=== PATIENT | male | born 1935 | race Caucasian/White ===

== ENCOUNTER 2016-07-30 15:51 | Inpatient (IN) | payer MEDICARE, OTHER ==
--- NOTE | ~2016-07-30 | HP ---
History And Physical [place] [address] [facility] [place]. [address] NAME: GAURAV GLEASON : 31 STATUS : ADM IN PAT#: [id number] AGE: 81 ADM/REG DATE : 07/30/16 MR#: [id number] REPORT SERV DATE: 07/30/16 DICTATED BY: NABIL REED DATE: 07/30/16 REPORT STATUS : Draft TRANSCRIBED BY: MODL DATE: 07/30/16 DATE OF ADMISSION: 07/30/2016 CHIEF COMPLAINT: Bilateral lower extremity edema and failure to thrive. HISTORY OF PRESENT ILLNESS: This is an 81-year-old gentleman with a history of nonischemic cardiomyopathy as well as Alzheimer's dementia, presenting with a bilateral lower extremity edema and failure to thrive. The patient himself is not able to provide any valuable information. The patient's was at bedside who gave most of the history. Also I reviewed the existing medical records. The patient has had gradual decline over the past six months. The patient was actually diagnosed with Alzheimer's about two weeks ago, but it seems that the patient has quite advanced dementia as the patient is not able to recognize his or his kids half the time. The patient is not able to change clothes or take bath by himself since about a month ago. Although the patient has been declining over the past six to eight months, the patient has really rapidly declined over the past several days. The patient developed bilateral lower extremity edema as well as shortness of breath especially dyspnea on exertion. The patient is now only able to take a few steps before he gets out of breath. The patient also seen to have decreasing energy level and generalized weakness that he is not able to get out of bed or chair without any assistance. The patient was brought to the ER for further evaluation and care. In the ER, the patient was found to be afebrile and hemodynamically stable. The patient was not hypoxic, and the patient's initial lab work was quite benign. However, the patient was found to have increasing pulmonary congestion and cardiomegaly on chest x-ray. Internal Medicine consultation was requested for admission of the patient for further evaluation and care. REVIEW OF SYSTEMS: The patient is not able to answer review of systems questions by himself. MEDICATIONS: 1. Zyloprim 300 mg p.o. q.a.m. 2. Coreg 12.5 mg p.o. b.i.d. 3. Lasix 20 mg p.o. q.a.m. 4. Neurontin 300 mg p.o. q.a.m. and 600 mg p.o. q.p.m. 5. Lisinopril 10 mg p.o. q.a.m. 6. Zyprexa 2.5 mg p.o. q.h.s. 7. Flomax 0.4 mg p.o. q.a.m. 8. Coumadin 2.5 mg on the week and 5 mg on Friday and Friday. ALLERGIES: NKDA. PAST MEDICAL HISTORY: 1. History of DVT and PE back in 1992. History And Physical [address] [address] NAME: GAURAV GLEASON : 33 STATUS : ADM IN [facility]#: [id number] AGE: 81 ADM/REG DATE : 07/30/16 MR#: [id number] REPORT SERV DATE: 07/30/16 DICTATED BY: NABIL REED DATE: 07/30/16 REPORT STATUS : Draft TRANSCRIBED BY: NICHOLAS DATE: 07/30/16 2. Nonischemic cardiomyopathy with ejection fraction of 20% to 25% at baseline. The patient follows with Dr. Harding. 3. Pacemaker and AICD dependent, the patient again follows with Dr. Harding. 4. Hypertension. 5. Hyperlipidemia. 6. Chronic LBBB. 7. Gout. 8. Alzheimer's dementia, quite advanced. PAST SURGICAL HISTORY: 1. Bilateral knee surgeries. 2. Partial colectomy secondary to GI bleed in the past. FAMILY HISTORY: Heart diseases. SOCIAL HISTORY: The patient does not smoke, drink alcohol, or use any illicit drugs. The patient lives at home with his . 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 PHYSICAL EXAMINATION: VITAL SIGNS: Temperature 98.4, blood pressure 124/63, pulse 65, respiratory rate is 16, and saturating 96% on room air. NEUROLOGIC: The patient is alert, but quite disoriented x3. The patient exhibits no obvious focal neurologic deficits. GENERAL: The patient is awake, does appear to be in acute distress, and he is cooperative. NECK: No JVD. No lymphadenopathy. Normal thyroid. CHEST: No midline sternotomy scar and no tenderness to palpation. LUNGS: Fairly clear to auscultation anteriorly, but decreased aeration posteriorly. The patient otherwise has normal respiratory effort on room air. CARDIOVASCULAR: Regular rate and rhythm with no murmurs, rubs, or gallops, and PMI is nondisplaced. ABDOMEN: Soft, nontender, with active bowel sounds and no organomegaly. EXTREMITIES: The patient has diffuse 3+ bilateral lower extremity edema. The patient has no calf tenderness. SKIN: Clean, dry, warm, and intact. LABORATORY DATA: Sodium is 140, potassium 4.3, chloride 107, BUN 18, creatinine 1.08, glucose 84, calcium 8.7, magnesium 2.1. White blood cell count is 7.2, hemoglobin 11.8, platelets 99. INR is 3.6. Troponin is 0.02. BNP is 880.5. Chest x-ray is personally interpreted and it shows increasing pulmonary congestion with cardiomegaly. Doppler ultrasound of the bilateral lower extremities was negative for DVT. ASSESSMENT AND PLAN: This is an 81-year-old gentleman with a history of nonischemic cardiomyopathy as well as Alzheimer's dementia, presenting with acute on chronic systolic congestive heart failure exacerbation and failure to thrive. History And Physical [address] [address] NAME: GAURAV GLEASON : 33 STATUS : ADM IN [facility]#: [id number] AGE: 81 ADM/REG DATE : 07/30/16 MR#: [id number] REPORT SERV DATE: 07/30/16 DICTATED BY: NABIL REED DATE: 07/30/16 REPORT STATUS : Draft TRANSCRIBED BY: MODL DATE: 07/30/16 1. Acute on chronic systolic congestive heart failure exacerbation, with baseline ejection fraction of 20% to 25%. 2. Failure to thrive in adult. 3. Advanced dementia. 4. History of deep venous thrombosis and pulmonary embolism, on chronic anticoagulation with Coumadin. 5. Hypertension. 6. Chronic LBBB. 7. Hyperlipidemia. 8. Gout. PLAN: The plan is to admit the patient under telemetry monitoring. The patient will be given IV Lasix diuresis. In's and out's and daily weights will be closely monitored as well as daily electrolytes and renal function. I will go ahead and check an echocardiogram. The patient will also be given supportive care with oxygen and bronchodilator therapy as needed. The patient will also be seen by physical therapy for assessment of fall risk and discharge planning. I will also go ahead and check TSH and liver profile. Otherwise, for the rest of stable past medical conditions, including hypertension, hyperlipidemia, gout, chronic LBBB, and all, I will continue home medications. Standard DVT prophylaxis. The patient is DNR at this time. JESSICA/NICHOLAS Nabil Reed MD / [id number] CC: Vadim Urbina M.D.
--- NOTE | ~2016-07-30 | DS ---
Discharge Summary [facility] [address] [place]. [address] NAME: GAURAV GLEASON : 31 STATUS : DIS IN PAT#: [id number] AGE: 81 ADM/REG DATE : 07/30/16 MR#: [id number] REPORT SERV DATE: 08/06/16 DICTATED BY: GAMAL MCFADDEN DATE: 08/05/16 REPORT STATUS : Draft TRANSCRIBED BY: MODL DATE: 08/05/16 ADMISSION DATE: 07/30/2016 DISCHARGE DATE: 08/05/2016 DIAGNOSES: 1. Acute on chronic systolic heart failure with an ejection fraction of 15%. 2. Progressive dementia. 3. Failure to thrive. 4. Pyuria, hematuria, low-grade fever. 5. Hypothyroidism, most recent TSH 4.900. 6. History of deep vein thrombosis and pulmonary embolism on chronic Coumadin therapy with an admission supratherapeutic INR that was highest at 3.7. 7. History of hypertension. 8. Torticollis. HISTORY OF PRESENT ILLNESS: This 81-year-old gentleman who presented with bilateral lower extremity edema worsened failure to thrive and inability to perform ADLs. Please see the initial H and P of Dr. Nabil Madrigal as patient was admitted to the Hospitalist Service for further evaluation and treatment. Initially was given some IV diuresis. Lab work was ordered and followed. His Coumadin was placed on hold. An echocardiogram was ordered. HOSPITAL COURSE: I began seeing the patient on 07/31/2016 where he was pleasantly confused and his edema was somewhat persistent, was found to be malnourished and also had a low albumin of 2.6. TSH was also found to be somewhat elevated at 4.900 and so a low-dose Synthroid was initiated. He continued to make some improvement in his general swelling and output was good with his diuresis and he was switched over to p.o. diuretics once the echocardiogram was done, however, showing the severe reduction in his ejection fraction and overall reduction in his LV function. I had a discussion with at bedside in regard to his end-stage disease processes and discussion included more palliative focus up into including hospice. The patient's agreed to meet with hospice to learn more about their service. The patient also in the meantime had developed some hematuria from somewhat traumatic event with his Fontanez catheter although the Fontanez catheter was not removed he did have some persistent hematuria. Urinalysis was checked and he was given a dose of Rocephin during this admission although his urine culture did not grow any bacteria. Over the past 48 hours, 08/04 and 08/05, the patient did become quite a bit more somnolent, lethargic, and his p.o. intake began to decline. He was not responsive to even painful stimulus today on 08/05/2016. Vitals have remained stable however. I had lengthy discussion with his about his declining mental status and his worsening medical condition. She agreed to allow hospice to assume his care and to focus primarily on his comfort. [facility] was asked to assume his care on 08/05/2016 and they will be admitting him under their service. Other testing during this admission include a venous Doppler ultrasound of the right lower extremity that showed no evidence of any acute thrombus there. Please note, greater than 30 minutes was spent for family planning, meeting, education, and disposition to hospice. Discharge Summary [address] [place]. [address] NAME: GAURAV GLEASON : 31 STATUS : DIS IN PAT#: [id number] AGE: 81 ADM/REG DATE : 07/30/16 MR#: [id number] REPORT SERV DATE: 08/06/16 DICTATED BY: GAMAL MCFADDEN DATE: 08/05/16 REPORT STATUS : Draft TRANSCRIBED BY: NICHOLAS DATE: 08/05/16 MARY/NICHOLAS Gamal Mcfadden NP / [id number] CC: Vadim Torres M.D.
[~2016-07-30 15:51] MED LIST: AMB10 PO; ASAB PO; BEN25 PO; C2 PO; C25 PO; COLCH6 PO; COLCRYS0.6 MG PO; COREG12 PO; COUMADIN4 MG PO; COUMADIN6 MG PO; FLOMAX4 PO; KDUR20 PO; KLOR-CON M2020 MEQ PO; L40 PO; LORTAB10 PO; MCZ125 PO; NATURA2 OPH; NEUR300 PO; NEUR600 PO; PCET PO; PRESERVISION PO; PRIN10 PO; PRIN20 PO; SIMPLY SLEEP25 MG PO; Z300 PO; [UNRECOGNIZED DRUG - REMARK]
[2016-07-30] MEDS ORDERED: NEUR600 PO (16:32)
[2016-07-30] MEDS ORDERED: NEUR300 PO (16:32)
[2016-07-30] MEDS ORDERED: COREG12 PO (16:33)
[2016-07-30] MEDS ORDERED: C5 PO (16:33)
[2016-07-30] MEDS ORDERED: C25 PO (16:33)
[2016-07-30] MEDS ORDERED: PRIN10 PO (16:34)
[2016-07-30] MEDS ORDERED: FLOMAX4 PO (16:34)
[2016-07-30] MEDS ORDERED: L20 PO (16:34)
[2016-07-30] MEDS ORDERED: Z300 PO (16:35)
[2016-07-30] MEDS ORDERED: ZYP2 PO (16:37)
[2016-07-30 17:38] LABS: BASOPHILS 0.3 %; BASOPHILS ABSOLUTE 0.02 10/3/uL (0.0-0.16); EOSINOPHILS 1.9 %; EOSINOPHILS ABSOLUTE 0.14 10/3/uL (0.0-0.53); ER CBC TAT 0 Hrs 03 Mins; HEMATOCRIT 37.5 % (40.0-51.0); HEMOGLOBIN 11.8 g/dL (13.6-17.8); IMMATURE GRANULOCYTES 0.1 %; IMMATURE GRANULOCYTES ABSOLUTE 0.01 10/3/uL (0.0-0.11); LYMPHOCYTES 9.8 %; LYMPHOCYTES ABSOLUTE 0.71 10/3/uL (0.67-4.30); MEAN CORPUS HGB CONC 31.5 g/dL (32.0-36.0); MEAN CORPUSCULAR HEMOGLOB 28.6 pg (26.0-34.0); MEAN PLATELET VOLUME 10.3 fL (9.2-13.0); MONOCYTES 7.7 %; MONOCYTES ABSOLUTE 0.56 10/3/uL (0.21-1.20); NEUTROPHILS 80.2 %; RBC DISTRIBUTION WIDTH 16.7 % (12.0-16.0); RED CELL COUNT 4.12 10/6/uL (4.7-6.1); WHITE BLOOD CELLS 7.2 10/3/uL (4.5-10.5)
[2016-07-30 17:39] LABS: MANUAL DIFF NO %; PLATELET COUNT 99 10/3/uL (150-400)
[2016-07-30 17:53] LABS: CALCIUM, SERUM 8.7 MG/DL (8.5-10.4); CHEST PAIN PROFILE TAT 0 Hrs 18 Mins; CHLORIDE, SERUM 107 MMOL/L (96-112); CO2 (CARBON DIOXIDE) 26 MMOL/L (24-34); CREATININE 1.08 MG/DL (0.70-1.30); GFR AFRICAN AMERICAN 73 ML/MIN (>=60); GFR NON AFRICAN AMERICAN 63 ML/MIN (>=60); GLUCOSE, SERUM 84 MG/DL (60-99); POTASSIUM, SERUM 4.3 MMOL/L (3.5-5.3); SODIUM, SERUM 140 MMOL/L (135-148); TROPONIN I 0.02 NG/ML (<0.05)
[2016-07-30 17:54] LABS: BUN (BLOOD UREA NITROGEN) 18 MG/DL (6-23)
[2016-07-30 18:08] LABS: INTERNATIONAL NORMAL RATI 3.6 UNITS (-); PARTIAL THROMBO TIME 42.2 SEC (22.5-37.2)
[2016-07-30 18:10] LABS: PROTIME (NOT ORD) 35.8 SEC (12.0-14.5)
[2016-07-31 06:33] LABS: BASOPHILS 0.2 %; BASOPHILS ABSOLUTE 0.01 10/3/uL (0.0-0.16); EOSINOPHILS 3.4 %; EOSINOPHILS ABSOLUTE 0.21 10/3/uL (0.0-0.53); HEMATOCRIT 35.2 % (40.0-51.0); HEMOGLOBIN 11.2 g/dL (13.6-17.8); IMMATURE GRANULOCYTES 0.3 %; IMMATURE GRANULOCYTES ABSOLUTE 0.02 10/3/uL (0.0-0.11); LYMPHOCYTES ABSOLUTE 0.92 10/3/uL (0.67-4.30); MEAN CORPUS HGB CONC 31.8 g/dL (32.0-36.0); MEAN CORPUSCULAR HEMOGLOB 28.9 pg (26.0-34.0); MEAN CORPUSCULAR VOLUME 90.7 fL (80-100); MEAN PLATELET VOLUME 11.6 fL (9.2-13.0); MONOCYTES 8.8 %; MONOCYTES ABSOLUTE 0.54 10/3/uL (0.21-1.20); NEUTROPHILS 72.3 %; NEUTROPHILS ABSOLUTE 4.45 10/3/uL (2.02-8.40); RBC DISTRIBUTION WIDTH 16.7 % (12.0-16.0); RED CELL COUNT 3.88 10/6/uL (4.7-6.1); WHITE BLOOD CELLS 6.2 10/3/uL (4.5-10.5)
[2016-07-31 06:34] LABS: MANUAL DIFF NO %; PLATELET COUNT 132 10/3/uL (150-400)
[2016-07-31 06:37] LABS: INTERNATIONAL NORMAL RATI 3.7 UNITS (-); PROTIME (NOT ORD) 36.4 SEC (12.0-14.5)
[2016-07-31 06:55] LABS: A/G RATIO 0.7 (0.7-1.9); ALKALINE PHOSPHATASE 56 U/L (45-117); BUN (BLOOD UREA NITROGEN) 19 MG/DL (6-23); CALCIUM, SERUM 8.4 MG/DL (8.5-10.4); CHLORIDE, SERUM 104 MMOL/L (96-112); CO2 (CARBON DIOXIDE) 30 MMOL/L (24-34); CREATININE 1.12 MG/DL (0.70-1.30); GFR AFRICAN AMERICAN 70 ML/MIN (>=60); GFR NON AFRICAN AMERICAN 60 ML/MIN (>=60); GLOBULIN 3.8 G/DL (2.5-4.1); GLUCOSE, SERUM 80 MG/DL (60-99); POTASSIUM, SERUM 3.6 MMOL/L (3.5-5.3); SGOT(AST) 12 U/L (5-40); SGPT(ALT) 11 U/L (5-65); SODIUM, SERUM 143 MMOL/L (135-148); TOTAL BILIRUBIN 1.1 MG/DL (0-1.2); TOTAL PROTEIN 6.4 G/DL (6.0-8.5); TROPONIN I 0.04 NG/ML (<0.05)
[2016-07-31 06:57] LABS: ALBUMIN 2.6 G/DL (3.5-5.0)
[2016-08-01 05:06] LABS: BASOPHILS 0.1 %; BASOPHILS ABSOLUTE 0.01 10/3/uL (0.0-0.16); EOSINOPHILS 1.2 %; EOSINOPHILS ABSOLUTE 0.09 10/3/uL (0.0-0.53); HEMATOCRIT 36.3 % (40.0-51.0); HEMOGLOBIN 11.4 g/dL (13.6-17.8); IMMATURE GRANULOCYTES 0.3 %; IMMATURE GRANULOCYTES ABSOLUTE 0.02 10/3/uL (0.0-0.11); LYMPHOCYTES 10.8 %; LYMPHOCYTES ABSOLUTE 0.84 10/3/uL (0.67-4.30); MEAN CORPUS HGB CONC 31.4 g/dL (32.0-36.0); MEAN CORPUSCULAR HEMOGLOB 27.6 pg (26.0-34.0); MEAN PLATELET VOLUME 11.5 fL (9.2-13.0); MONOCYTES 7.2 %; MONOCYTES ABSOLUTE 0.56 10/3/uL (0.21-1.20); NEUTROPHILS 80.4 %; NEUTROPHILS ABSOLUTE 6.25 10/3/uL (2.02-8.40); PLATELET COUNT 146 10/3/uL (150-400); RBC DISTRIBUTION WIDTH 16.6 % (12.0-16.0); RED CELL COUNT 4.13 10/6/uL (4.7-6.1); WHITE BLOOD CELLS 7.8 10/3/uL (4.5-10.5)
[2016-08-01 05:12] LABS: MANUAL DIFF NO %; MEAN CORPUSCULAR VOLUME 87.9 fL (80-100)
[2016-08-01 05:17] LABS: PROTIME (NOT ORD) 30.9 SEC (12.0-14.5)
[2016-08-01 05:19] LABS: CALCIUM, SERUM 8.5 MG/DL (8.5-10.4); CHLORIDE, SERUM 102 MMOL/L (96-112); CO2 (CARBON DIOXIDE) 32 MMOL/L (24-34); CREATININE 1.35 MG/DL (0.70-1.30); GFR AFRICAN AMERICAN 56 ML/MIN (>=60); GFR NON AFRICAN AMERICAN 48 ML/MIN (>=60); POTASSIUM, SERUM 3.6 MMOL/L (3.5-5.3); SODIUM, SERUM 141 MMOL/L (135-148)
[2016-08-01 05:27] LABS: BUN (BLOOD UREA NITROGEN) 27 MG/DL (6-23); GLUCOSE, SERUM 101 MG/DL (60-99)
[2016-08-01 15:34] LABS: ASCORBIC ACID (UR NOT ORDER) NEG (NEG); BILIRUBIN, URINE NEGATIVE (NEG); KETONE, URINE NEGATIVE (NEG); LEUKOCYTE ESTERASE(NOT OR TRACE (NEG); WBC (NOT ORDERED) (RFLEX) 125 (0-5)
[2016-08-02 05:57] LABS: BASOPHILS 0.1 %; BASOPHILS ABSOLUTE 0.01 10/3/uL (0.0-0.16); EOSINOPHILS 1.5 %; EOSINOPHILS ABSOLUTE 0.13 10/3/uL (0.0-0.53); HEMATOCRIT 35.4 % (40.0-51.0); HEMOGLOBIN 11.2 g/dL (13.6-17.8); IMMATURE GRANULOCYTES 0.2 %; IMMATURE GRANULOCYTES ABSOLUTE 0.02 10/3/uL (0.0-0.11); LYMPHOCYTES 10.3 %; LYMPHOCYTES ABSOLUTE 0.87 10/3/uL (0.67-4.30); MEAN CORPUS HGB CONC 31.6 g/dL (32.0-36.0); MEAN CORPUSCULAR HEMOGLOB 28.8 pg (26.0-34.0); MEAN PLATELET VOLUME 11.1 fL (9.2-13.0); MONOCYTES 6.4 %; MONOCYTES ABSOLUTE 0.54 10/3/uL (0.21-1.20); NEUTROPHILS 81.5 %; NEUTROPHILS ABSOLUTE 6.85 10/3/uL (2.02-8.40); PLATELET COUNT 132 10/3/uL (150-400); RBC DISTRIBUTION WIDTH 16.5 % (12.0-16.0); RED CELL COUNT 3.89 10/6/uL (4.7-6.1); WHITE BLOOD CELLS 8.4 10/3/uL (4.5-10.5)
[2016-08-02 06:00] LABS: INTERNATIONAL NORMAL RATI 2.5 UNITS (-); PROTIME (NOT ORD) 27.1 SEC (12.0-14.5)
[2016-08-02 06:01] LABS: MANUAL DIFF NO %
[2016-08-02 06:04] LABS: CALCIUM, SERUM 8.4 MG/DL (8.5-10.4); CHLORIDE, SERUM 104 MMOL/L (96-112); CO2 (CARBON DIOXIDE) 32 MMOL/L (24-34); CREATININE 1.44 MG/DL (0.70-1.30); GFR AFRICAN AMERICAN 52 ML/MIN (>=60); GFR NON AFRICAN AMERICAN 45 ML/MIN (>=60); GLUCOSE, SERUM 87 MG/DL (60-99); POTASSIUM, SERUM 3.9 MMOL/L (3.5-5.3); SODIUM, SERUM 143 MMOL/L (135-148)
[2016-08-02 06:05] LABS: BUN (BLOOD UREA NITROGEN) 34 MG/DL (6-23)
[2016-08-03 05:20] LABS: BASOPHILS 0.1 %; BASOPHILS ABSOLUTE 0.01 10/3/uL (0.0-0.16); EOSINOPHILS ABSOLUTE 0.23 10/3/uL (0.0-0.53); HEMATOCRIT 36.9 % (40.0-51.0); HEMOGLOBIN 11.7 g/dL (13.6-17.8); IMMATURE GRANULOCYTES 0.3 %; IMMATURE GRANULOCYTES ABSOLUTE 0.02 10/3/uL (0.0-0.11); LYMPHOCYTES 11.6 %; LYMPHOCYTES ABSOLUTE 0.89 10/3/uL (0.67-4.30); MEAN CORPUS HGB CONC 31.7 g/dL (32.0-36.0); MEAN CORPUSCULAR VOLUME 91.3 fL (80-100); MEAN PLATELET VOLUME 11.4 fL (9.2-13.0); MONOCYTES 8.8 %; MONOCYTES ABSOLUTE 0.68 10/3/uL (0.21-1.20); NEUTROPHILS 76.2 %; NEUTROPHILS ABSOLUTE 5.86 10/3/uL (2.02-8.40); PLATELET COUNT 144 10/3/uL (150-400); RBC DISTRIBUTION WIDTH 16.4 % (12.0-16.0); RED CELL COUNT 4.04 10/6/uL (4.7-6.1); WHITE BLOOD CELLS 7.7 10/3/uL (4.5-10.5)
[2016-08-03 05:21] LABS: MANUAL DIFF NO %
[2016-08-03 05:32] LABS: BUN (BLOOD UREA NITROGEN) 34 MG/DL (6-23); CALCIUM, SERUM 8.6 MG/DL (8.5-10.4); CHLORIDE, SERUM 105 MMOL/L (96-112); CO2 (CARBON DIOXIDE) 31 MMOL/L (24-34); CREATININE 1.32 MG/DL (0.70-1.30); GFR AFRICAN AMERICAN 57 ML/MIN (>=60); GFR NON AFRICAN AMERICAN 50 ML/MIN (>=60); GLUCOSE, SERUM 87 MG/DL (60-99); POTASSIUM, SERUM 4.4 MMOL/L (3.5-5.3); SODIUM, SERUM 143 MMOL/L (135-148)
[2016-08-05 09:18] LABS: BASOPHILS 0.1 %; BASOPHILS ABSOLUTE 0.01 10/3/uL (0.0-0.16); EOSINOPHILS 0.2 %; EOSINOPHILS ABSOLUTE 0.02 10/3/uL (0.0-0.53); HEMOGLOBIN 12.2 g/dL (13.6-17.8); IMMATURE GRANULOCYTES 0.2 %; IMMATURE GRANULOCYTES ABSOLUTE 0.02 10/3/uL (0.0-0.11); LYMPHOCYTES 7.2 %; LYMPHOCYTES ABSOLUTE 0.65 10/3/uL (0.67-4.30); MEAN CORPUSCULAR HEMOGLOB 27.7 pg (26.0-34.0); MEAN CORPUSCULAR VOLUME 92.5 fL (80-100); MEAN PLATELET VOLUME 11.5 fL (9.2-13.0); MONOCYTES 12.1 %; NEUTROPHILS 80.2 %; NEUTROPHILS ABSOLUTE 7.27 10/3/uL (2.02-8.40); PLATELET COUNT 155 10/3/uL (150-400); RBC DISTRIBUTION WIDTH 16.7 % (12.0-16.0); WHITE BLOOD CELLS 9.1 10/3/uL (4.5-10.5)
[2016-08-05 09:19] LABS: HEMATOCRIT 40.7 % (40.0-51.0); MANUAL DIFF NO %
[2016-08-05 09:26] LABS: INTERNATIONAL NORMAL RATI 1.9 UNITS (-)
[2016-08-05 09:29] LABS: BUN (BLOOD UREA NITROGEN) 48 MG/DL (6-23); CALCIUM, SERUM 8.8 MG/DL (8.5-10.4); CHLORIDE, SERUM 108 MMOL/L (96-112); CO2 (CARBON DIOXIDE) 31 MMOL/L (24-34); CREATININE 1.72 MG/DL (0.70-1.30); GFR AFRICAN AMERICAN 42 ML/MIN (>=60); GFR NON AFRICAN AMERICAN 36 ML/MIN (>=60); GLUCOSE, SERUM 102 MG/DL (60-99); POTASSIUM, SERUM 4.4 MMOL/L (3.5-5.3); SODIUM, SERUM 147 MMOL/L (135-148)
[2016-08-05 09:33] LABS: PROTIME (NOT ORD) 21.5 SEC (12.0-14.5)
== END 2016-08-05 17:04 | disposition hospice, inpatient (51) | DRG 292 ==
LOC: ER 15:51 → 5NO 19:25
PROVIDERS: Emergency Medicine; Internal Medicine; Nurse Practitioner Family
DX: I11.0 Hypertensive heart disease with heart failure (principal); N39.0 Urinary tract infection, site not specified; E44.0 Moderate protein-calorie malnutrition; G30.9 Alzheimer's disease, unspecified; F02.80 Dementia in other diseases classified elsewhere, unspecified severity, without behavioral disturbance, psychotic disturbance, mood disturbance, and anxiety; I44.7 Left bundle-branch block, unspecified; Z79.01 Long term (current) use of anticoagulants; R62.7 Adult failure to thrive; I50.23 Acute on chronic systolic (congestive) heart failure; E78.5 Hyperlipidemia, unspecified; M10.9 Gout, unspecified; Z86.718 Personal history of other venous thrombosis and embolism; Z51.5 Encounter for palliative care; Z66 Do not resuscitate; E03.9 Hypothyroidism, unspecified; M43.6 Torticollis; Z68.27 Body mass index [BMI] 27.0-27.9, adult
CPT/HCPCS: 71010; 80048; 80053; 81001; 82140; 82962; 83735; 83880; 84443; 84484; 85025; 85610; 85730; 87086; 93005; 93970; 94640; 96374; 97162-GP; 99285; A9270-GY; C8929; G8978-CM-GP; G8979-CL-GP; J2405; Q9957

== ENCOUNTER 2016-08-05 17:08 | Inpatient (IN) | payer OTHER ==
--- NOTE | ~2016-08-05 | HP ---
History And Physical [place] [address] [facility] [place]. [address] NAME: GAURAV GLEASON : 31 STATUS : ADM IN PAT#: [id number] AGE: 81 ADM/REG DATE : 08/05/16 MR#: [id number] REPORT SERV DATE: 08/06/16 DICTATED BY: ABRAHAM BANDA DATE: 08/05/16 REPORT STATUS : Draft TRANSCRIBED BY: MODL DATE: 08/05/16 DATE OF ADMISSION: 08/05/2016 HISTORY OF PRESENT ILLNESS: The patient is an 81-year-old who was admitted to [facility] on 07/30/2016 with worsening shortness of breath, congestion, was found to be in congestive heart failure. In the meantime, his ejection fraction has reportedly declined from 25% to 15%. He has also had a fairly rapid onset of dementia, which was just named Alzheimer's about two weeks ago. The family says he has been declining for. He was markedly short of breath and was diuresed aggressively, but has continued to decline. PAST MEDICAL HISTORY: Pertinent for chronic kidney disease, stage III; DVT; and pulmonary embolus. ALLERGIES: HE HAS NO KNOWN ALLERGIES. PAST SURGICAL HISTORY: He is status post pacemaker and AICD, which is now turned off. He had three replacement surgeries on his right knee and one on his left side. REVIEW OF SYSTEMS: The patient is obtunded and cannot answer; however, there were reports of hematuria, marked weight loss, increasing dyspnea, and some pain. SOCIAL HISTORY: The patient is a nonsmoker and nondrinker. Presbyterian, , 56.5 years according to his bride, they have four children. 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 FAMILY HISTORY: Pertinent only for heart disease. Apparently, his other brother younger. PHYSICAL EXAMINATION: GENERAL: This an obtunded white male who looks a bit younger than his stated age. He moans if moved. VITAL SIGNS: Respirations 30, oxygen saturation 90% on room air, blood pressure 109/60, and pulse 65. HEENT: Pupils are equal. No carotid bruits are heard. He has some small amount of what we would call a rattle. LUNGS: His lungs are surprisingly clear, otherwise. HEART: Regular sinus rhythm with no perceptible murmurs or gallops. ABDOMEN: Thin, scaphoid, and nontender. EXTREMITIES: He has no edema in his legs, but he has been lying flat for a good while. ASSESSMENT AND PLAN: This is an 81-year-old with rapid cognitive decline, worsening congestive heart failure feeling, who is now focused on comfort care. He is obtunded. He does have some pain. We are admitting him to the hospital G[facility] with a goal of getting him to the care center where we can get a bed. He is DNR and his AICD has been turned off. I did speak with the and daughter. The patient's prognosis is likely hours to days. PPS History And Physical [address] [address] NAME: GAURAV GLEASON : 31 STATUS : ADM IN [facility]#: [id number] AGE: 81 ADM/REG DATE : 08/05/16 MR#: [id number] REPORT SERV DATE: 08/06/16 DICTATED BY: ABRAHAM BANDA DATE: 08/05/16 REPORT STATUS : Draft TRANSCRIBED BY: NICHOLAS DATE: 08/05/16 would be down to 10% at the present. GP/NICHOLAS Abraham Banda MD / [id number] CC: Abraham Banda MD
[~2016-08-05 17:08] MED LIST changes: +C5 PO; +L20 PO; +ZYP2 PO
== END 2016-08-07 14:09 | disposition hospice, inpatient (51) | DRG 292 ==
LOC: 5NO 17:08
DX: I11.0 Hypertensive heart disease with heart failure (principal); N39.0 Urinary tract infection, site not specified; G30.9 Alzheimer's disease, unspecified; F02.80 Dementia in other diseases classified elsewhere, unspecified severity, without behavioral disturbance, psychotic disturbance, mood disturbance, and anxiety; I50.23 Acute on chronic systolic (congestive) heart failure; I44.7 Left bundle-branch block, unspecified; Z79.01 Long term (current) use of anticoagulants; E78.5 Hyperlipidemia, unspecified; M10.9 Gout, unspecified; Z86.718 Personal history of other venous thrombosis and embolism; Z51.5 Encounter for palliative care; Z66 Do not resuscitate; E03.9 Hypothyroidism, unspecified; M43.6 Torticollis
CPT/HCPCS: 94640; A9270-GY